=== PATIENT | female | born 1990 | race Hispanic/Latino ===

== ENCOUNTER 2024-09-29 18:20 | Emergency (ER) | payer BC ==
[~2024-09-29] VITALS: Ht 162.6 cm; Wt 88.0 kg
[2024-09-29] MEDS: DIPHENHYDRAMINE HCL INJ 50 MG/ML VIAL IV ONE (20:58)
[2024-09-29] MEDS ORDERED: DIATRIZOATE MEGL/DIATRIZOA SOD 30 ML BTL PO ONE (22:05)
[2024-09-30 01:02] VITALS: PULSE 78; RESP 16; TEMP 98.2
[2024-09-30 01:04] VITALS: BP 138/78; PULSE 78; RESP 16; TEMP 97.1; O2SAT 98
== END 2024-09-30 01:12 | disposition home or self-care (01) ==
LOC: FSED 19:24
DX: K62.5 Hemorrhage of anus and rectum (principal); N20.0 Calculus of kidney; E03.9 Hypothyroidism, unspecified; Z85.118 Personal history of other malignant neoplasm of bronchus and lung
CPT/HCPCS: 74176; 80053; 80307; 81003; 81025; 85025; 85610; 99284; J1200; Q9963